=== PATIENT | male | born 1975 | race African-American/Black ===

== ENCOUNTER 2016-09-13 18:44 | Emergency (ER) | payer OTHER ==
[2016-09-13 18:55] VITALS: BP 167/102; PULSE 98; TEMP 98; BMI 32.1
[2016-09-13] MEDS ORDERED: IBUPROFEN 400 MG TABLET (FP) PO ONE ×2 (19:41→19:45)
[2016-09-13] MEDS ORDERED: PENICILLIN V POTASSIUM 500 MG TABLET PO ONE (19:41)
--- NOTE | 2016-09-13 19:41 | PDOC ---
History of Present Illness - General History Source: Patient Exam Limitations: No Limitations - History of Present Illness Initial Comments: 09/13/16 19:48 The patient is a 41 year old male with no significant past medical history who presents to the ED with 3 days of worsening first molar pain. Patient reports he is unable to eat secondary to the pain. He states his pain radiates up to the head. Patient denies fever, chills, and diaphoresis. The patient denies cough, SOB, chest pain, and palpitations. The patient denies abdominal pain, nausea, vomiting, and diarrhea. Allergies: NDKA Social History: No alcohol, tobacco, or drug use reported. Past Surgical History: None reported <Monica Santoro - Last Filed: 09/13/16 19:48> - General History Source: Patient <Elias Laguerre - Last Filed: 09/13/16 19:52> - General Chief Complaint: Toothache Stated Complaint: HEAD/TOOTHACHE Time Seen by Provider: 09/13/16 19:34 Past History <Monica Santoro - Last Filed: 09/13/16 19:48> - Past Medical History Other medical history: DENIES - Psycho/Social/Smoking Cessation Hx Suicidal Ideation: No Smoking History: Never smoked Information on smoking cessation initiated: No Hx Alcohol Use: No Drug/Substance Use Hx: No Substance Use Type: None <Elias Laguerre - Last Filed: 09/13/16 19:52> - Past Medical History Allergies/Adverse Reactions: Allergies Allergy/AdvReac Type Severity Reaction Status Date / Time No Known Allergies Allergy Verified 09/13/16 18:55 Home Medications: Ambulatory Orders Ibuprofen 800 mg PO TID #30 tablet 09/13/16 Oxycodone HCl/Acetaminophen [Percocet 5-325 mg Tablet] 1 - 2 tab PO Q6H #20 tablet MDD 4 09/13/16 Penicillin V Potassium [Pen Vee K -] 500 mg PO TID #30 tablet 09/13/16 Review of Systems - Review of Systems Able to Perform ROS?: Yes Comments:: 09/13/16 19:48 CONSTITUTIONAL: Absent: fever, no chills, no fatigue EYES: Absent: visual changes ENT: +first molar pain Absent: ear pain, no sore throat CARDIOVASCULAR: Absent: chest pain, no palpitations RESPIRATORY: Absent: cough, no SOB GI: Absent: abdominal pain, no nausea, no vomiting, no constipation, no diarrhea GENITOURINARY: Absent: dysuria, no frequency, no hematuria MUSKULOSKELETAL: Absent: back pain, no arthralgia, no myalgia SKIN: Absent: rash NEURO: Absent: headache <MaudeMonica - Last Filed: 09/13/16 19:48> *Physical Exam - Vital Signs Last Vital Signs Temp Pulse Resp BP Pulse Ox 98 F 98 H 18 167/102 99 09/13/16 18:51 09/13/16 18:51 09/13/16 18:51 09/13/16 18:51 09/13/16 18:51 - Physical Exam Comments: 09/13/16 19:48 GENERAL: Well-appearing, well-nourished. No apparent distress. HEENT: Normocephalic, atraumatic. PERRL, EOM intact. Gingival line of the first molar is eroded; tooth looks dark CARDIOVASCULAR: Normal S1, S2. Regular rate and rhythm. PULMONARY: Clear to auscultation bilaterally. ABDOMEN: Soft, non-distended, non-tender. EXTREMITIES: Normal ROM in all four extremities. No gross deformities. SKIN: Warm, dry. No rash NEUROLOGICAL: No focal neurological deficits. <Monica Santoro - Last Filed: 09/13/16 19:48> - Vital Signs Last Vital Signs Temp Pulse Resp BP Pulse Ox 98 F 98 H 18 167/102 99 09/13/16 18:51 09/13/16 18:51 09/13/16 18:51 09/13/16 18:51 09/13/16 18:51 <Elias Laguerre - Last Filed: 09/13/16 19:52> Medical Decision Making - Medical Decision Making 09/13/16 19:46 Dr. Laguerre: The scribe's documentation has been prepared under my direction and personally reviewed by me in its entirery. I confirm that the note above accurately reflects all work, treatment, procedures, and medical decision making performed by me. Pt with toothache at 1st molar. Pt advised to follow up with a dentist. Rx given Pen vk, Motrn and Percocet <Elias Laguerre - Last Filed: 09/13/16 19:52> *DC/Admit/Observation/Transfer - Attestations Scribe Attestion: 09/13/16 19:48 Documentation prepared by Monica Santoro, acting as medical economics consultant for Elias Laguerre MD <Monica Santoro - Last Filed: 09/13/16 19:48> - Discharge Dispostion Admit: No <Elias Laguerre - Last Filed: 09/13/16 19:52> Diagnosis at time of Disposition: Tooth ache - Discharge Dispostion Disposition: HOME Condition at time of disposition: Stable - Prescriptions Prescriptions: Ibuprofen 800 mg PO TID #30 tablet Penicillin V Potassium [Pen Vee K -] 500 mg PO TID #30 tablet Oxycodone HCl/Acetaminophen [Percocet 5-325 mg Tablet] 1 - 2 tab PO Q6H #20 tablet MDD 4 - Patient Instructions Printed Discharge Instructions: DI for Dental Pain Additional Instructions: Please follow up with a dentist as soon as possible.
[2016-09-13] MEDS ORDERED: OXYCODONE/APAP 5/325MG COMBO TABLET ONE (20:43)
[2016-09-13] MEDS ORDERED: OXYCODONE/APAP 5/325MG COMBO TABLET PO ONE (20:53)
== END 2016-09-13 21:24 | disposition home or self-care (01) ==
LOC: JER 18:44
DX: K08.89 Other specified disorders of teeth and supporting structures (principal)
CPT/HCPCS: 99282-25